=== PATIENT | female | born 1960 | race Caucasian/White ===

== ENCOUNTER 2017-06-01 11:57 | Observation (INO) | payer OTHER ==
[~2017-06-01] VITALS: Ht 162.6 cm; Wt 88.8 kg
[~2017-06-01 11:57] MED LIST: CIPRO500 MG PO; CITALOPRAM HBR10 MG PO; CLONIDINE HCL0.1 MG PO; FLEXERIL5 MG PO; FLOMAX0.4 MG PO; MELOXICAM15 MG PO; MOTRIN600 MG PO; NAPROSYN500 MG PO; NORCO 5/3251 TABLET PO; PERCOCET 5/31 TABLET PO
[2017-06-01 12:15] LABS: HEMOGLOBIN 15.8 G/DL (11.9-15.5); MCH 33.3 PG (29.0-34.0); MCHC 34.3 G/DL (30.0-36.0); MCV 96.8 FL (83-99); PLATELET COUNT 291 K/uL (156-360); RBC DIS.WIDTH-CV 13.4 % (11.8-14.6); RBC DIS.WIDTH-SD 48.3 % (39-53); RED BLOOD COUNT 4.75 M/uL (3.80-5.20); WHITE BLOOD COUNT 7.3 K/uL (4.1-10.2)
[2017-06-01 12:23] LABS: CHLORIDE 107 mEq/L (99-109); POTASSIUM 4.4 mEq/L (3.7-5.4); SODIUM 142 mEq/L (136-147)
[2017-06-01 12:25] LABS: GLUCOSE 103 mg/dL (70-99)
[2017-06-01 12:29] LABS: GFR ESTIMATE (CALCULATED) > 59 mL/min/
[2017-06-01 12:30] LABS: UREA NITROGEN (BUN) 12 mg/dL (9-23)
[2017-06-01 12:37] LABS: TROP-I INTERPRETATION NEGATIVE; TROPONIN-I < 0.01 ng/mL (0.0-0.30)
[2017-06-01 12:51] LABS: INTER. NORMALIZED RATIO 0.9
[2017-06-01 12:54] LABS: PTT 29.4 SEC (25-37)
[2017-06-01] MEDS ORDERED: OXYCODONE HCL5 MG PO (15:14)
[2017-06-01] MEDS ORDERED: ESTRADIOL1 MG PO (15:15)
[2017-06-01] MEDS ORDERED: NABUMETONE500 MG PO (15:17)
[2017-06-01] MEDS ORDERED: GABAPENTIN300 MG PO (15:17)
[2017-06-01] MEDS ORDERED: LEVOTHYROXINE25 MCG PO (15:18)
[2017-06-01] MEDS ORDERED: LORAZEPAM0.5 MG PO (15:19)
[2017-06-01] MEDS ORDERED: OMEPRAZOLE40 M1 PO (15:20)
[2017-06-01] MEDS ORDERED: CYCLOBENZAPRINE5 MG PO (15:22)
[2017-06-01] MEDS ORDERED: FENOFIBRATE54 M1 PO (15:23)
[2017-06-01] MEDS ORDERED: NIACIN500 M1 PO (15:27)
[2017-06-01] MEDS ORDERED: MAGNESIUM OXID500 MG PO (15:28)
[2017-06-01] MEDS ORDERED: GLUCOSAMINE H1500 MG PO (15:37)
[2017-06-01] MEDS ORDERED: FISH OIL 1,0001 EAC7 PO (15:39)
[2017-06-01 15:45] LABS: HDL CHOLESTEROL 44 MG/DL (Desirable>=50); LDL CHOLESTEROL 138 mg/dL (Desirable<100); NON-HDL CHOLESTEROL 155 mg/dL (Desirable<160); TOTAL CHOLESTEROL 199 mg/dL (Desirable<200); TRIGLYCERIDES 83 MG/DL (Normal: <150)
[2017-06-01 16:10] VITALS: BP 153/87
[2017-06-01 19:10] VITALS: BP 133/79
[2017-06-01 19:34] LABS: TROP-I INTERPRETATION NEGATIVE; TROPONIN-I < 0.01 ng/mL (0.0-0.30)
[2017-06-02 00:02] VITALS: BP 123/79
[2017-06-02 00:57] LABS: TROP-I INTERPRETATION NEGATIVE; TROPONIN-I < 0.01 ng/mL (0.0-0.30)
[2017-06-02 03:54] VITALS: BP 112/70
[2017-06-02 07:46] VITALS: BP 110/63
[2017-06-02] MEDS ORDERED: ASPIR-LOW81 MG PO (10:12)
== END 2017-06-02 12:10 | disposition home or self-care (01) ==
LOC: EME 11:57 → EDOF 14:36 → 5WEST 14:36 → ENRESERV 14:41 → 5WEST 16:05 → ENPENDDIS 06-02 → 5WEST 06-02 12:10
PROVIDERS: Emergency Medicine; Internal Medicine
DX: R07.9 Chest pain, unspecified (principal); E78.5 Hyperlipidemia, unspecified; F17.200 Nicotine dependence, unspecified, uncomplicated; Z82.49 Family history of ischemic heart disease and other diseases of the circulatory system
CPT/HCPCS: 71046; 71275; 80048; 80061; 84484; 85027; 85610; 85730; 93005; 93971; 99281; 99285; G0378; J1650; J7030

== ENCOUNTER → 2017-07-01 | Outpatient (CLI) | payer OTHER ==
[~2017-07-01] VITALS: Ht 162.6 cm; Wt 89.4 kg
[~2017-07-01] MED LIST changes: +ASPIR 8181 M1 PO; +ASPIR-LOW81 MG PO; +ATIVAN0.5 MG PO; +CALCIUM + D3 E1 EACH PO; +CELEXA10 MG PO; +CLARITIN10 MG PO; +CYCLOBENZAPRINE5 MG PO; +ESTRACE1 MG PO; +ESTRADIOL1 MG PO; +FENOFIBRATE54 M1 PO; +FISH OIL 1,0001 EAC7 PO; +FLONASE16 G1 BOTH NARES; +GABAPENTIN300 MG PO; +GLUCOSAMINE H1500 MG PO; +LEVOTHYROXINE25 MCG PO; +LEVOXYL25 MCG PO; +LIPOFEN50 MG PO; +LORAZEPAM0.5 MG PO; +MAGNESIUM OXID500 MG PO; +NABUMETONE500 MG PO; +NEURONTIN300 MG PO; +NIACIN500 M1 PO; +NICOTINE PATCH1 EAC1 TD; +OMEPRAZOLE40 M1 PO; +ONCE DAILY1 EACH PO; +OXYCODONE HCL5 MG PO; +RELAFEN500 M1 PO; +ROXICODONE5 MG PO
== END | disposition home or self-care (01) ==
LOC: AMB 08:26
DX: Z12.11 Encounter for screening for malignant neoplasm of colon (principal); K57.30 Diverticulosis of large intestine without perforation or abscess without bleeding; Z53.8 Procedure and treatment not carried out for other reasons; K44.9 Diaphragmatic hernia without obstruction or gangrene; K29.70 Gastritis, unspecified, without bleeding; K22.8 Other specified diseases of esophagus; K21.9 Gastro-esophageal reflux disease without esophagitis; Z80.1 Family history of malignant neoplasm of trachea, bronchus and lung; F17.200 Nicotine dependence, unspecified, uncomplicated; Z79.82 Long term (current) use of aspirin; E78.2 Mixed hyperlipidemia; E03.9 Hypothyroidism, unspecified
CPT/HCPCS: 88305; J2250

== ENCOUNTER → 2017-09-24 | Outpatient (CLI) | payer OTHER ==
[~2017-09-24] VITALS: Ht 162.6 cm; Wt 90.7 kg
[~2017-09-24] MED LIST changes: +MELOXICAM7.5 MG PO; +STOMACH MED
== END | disposition home or self-care (01) ==
LOC: AMB 09:00
PROC: 0DBK8ZX Excision of Ascending Colon, Via Natural or Artificial Opening Endoscopic, Diagnostic (ICD-10-PCS; principal; 2017-09-24)
DX: Z12.11 Encounter for screening for malignant neoplasm of colon (principal); D12.2 Benign neoplasm of ascending colon; K64.8 Other hemorrhoids; K58.9 Irritable bowel syndrome, unspecified; K21.9 Gastro-esophageal reflux disease without esophagitis; E78.2 Mixed hyperlipidemia; E03.9 Hypothyroidism, unspecified; F17.208 Nicotine dependence, unspecified, with other nicotine-induced disorders; D75.1 Secondary polycythemia; E53.8 Deficiency of other specified B group vitamins; E55.9 Vitamin D deficiency, unspecified; Z80.1 Family history of malignant neoplasm of trachea, bronchus and lung; Z79.82 Long term (current) use of aspirin
CPT/HCPCS: 88305